=== PATIENT | female | born 1945 | race Caucasian/White ===

== ENCOUNTER 2016-11-24 10:48 | Inpatient (IN) | payer OTHER ==
[~2016-11-24] VITALS: Ht 165.1 cm; Wt 103.5 kg
[2016-11-24] MEDS ORDERED: methylPREDNISolone SOD SUCC 125 MG/2 ML VL IV ONE ×2 (11:00→11:15)
[2016-11-24] MEDS ORDERED: MIDAZOLAM HCL 5 MG/ML-1ML VIAL IV ONE ×2 (11:00→11:15)
[2016-11-24] MEDS ORDERED: SODIUM CHLORIDE 0.9% 1,000 ML IV ONE (11:01)
[2016-11-24 11:34] LABS: Basophils # (auto) 0 uL; Basophils % (auto) 0.5 % (0.0-2.0); Eosinophils # (auto) 0.1 uL; Eosinophils % (auto) 0.9 % (0.0-7.0); Hematocrit 45.6 % (36.0-46.0); Hemoglobin 15.2 g/dL (12.2-16.2); Lymphocytes # (auto) 0.8 uL; Lymphocytes % (auto) 9.6 % (10.0-50.0); Mean Corpuscular Hemoglobin 31.6 pg (28.0-32.0); Mean Corpuscular Hgb Conc. 33.4 g/dL (32.0-36.0); Mean Corpuscular Volume 94.6 fL (80.0-100.0); Monocytes # (auto) 0.3 uL; Monocytes % (auto) 3.6 % (0.0-12.0); Neutrophils # (auto) 7.4 uL; Neutrophils % (auto) 85.4 % (37.0-80.0); Red Cell Distribution Width 16.2 % (11.6-16.0); White Blood Cell 8.6 10^3/uL (4.4-10.8)
[2016-11-24 11:35] LABS: Mean Platelet Volume 10.3 fL (7.4-10.4); Platelet Count (auto) 134 10^3/uL (140-450)
[2016-11-24 11:38] LABS: Allen Test Modified; Base Excess -7.6 mmol/L (-2.0-2.0); Blood COHb 0.1 % (0.5-1.5); Blood MetHb 0.2 % (0.0-1.5); HCO3 17.2 mmol/L (22-26.0); MODE MASK - BIPAP; O2Hb 98.7 % (94.0-97.0); PCO2 33.5 mmHg (35.0-45.0); PCO2(T) 33.5 mmHg (35.0-45.0); PO2 413.2 mmHg (80.0-100.0); PO2(T) 413.2 mmHg (80.0-100.0); Room 7; Sample Type Arterial; Spont Vt 676; pH 7.329 (7.350-7.450)
[2016-11-24 11:51] LABS: INR 1.22 (0.9-1.15); Partial Thromboplastin Time 27.2 sec (22.64-33.71); Prothrombin Time 13.3 sec (9.37-12.3)
[2016-11-24 11:57] LABS: Albumin 3.6 g/dL (3.4-5.0); BUN/Creatinine Ratio 15.2; Bilirubin, Total 1.1 mg/dL (0.2-1.0); Calcium 8.5 mg/dL (8.5-10.1); Lactic Acid w/Reflex 3.6 mmol/L (0.4-2.0); Magnesium 2.3 mg/dL (1.6-2.6); Potassium 4.2 mmol/L (3.5-5.1); Total Protein 7.7 g/dL (6.4-8.2)
[2016-11-24 12:04] LABS: B-Type Natriuretic Peptide 767.47 pg/mL (0-100); Temperature: 24.3 C (20.0-25.0)
[2016-11-24 12:06] LABS: REFLEX LACTIC ACID YES OR NO YES
[2016-11-24] MEDS ORDERED: IPRATROPIUM BROM 0.5 MG/2.5ML INH SOL ONE (14:11)
[2016-11-24] MEDS ORDERED: ALBUTEROL SULF 2.5 MG/0.5ML(0.5%) NEB SOLN ONE (14:11)
[2016-11-24] MEDS ORDERED: ALBUTEROL SULF 2.5 MG/0.5ML(0.5%) NEB SOLN NEB ONE (14:30)
[2016-11-24] MEDS ORDERED: IPRATROPIUM BROM 0.5 MG/2.5ML INH SOL NEB ONE (14:30)
[2016-11-24] MEDS ORDERED: FUROSEMIDE 40 MG/4 ML VIAL IV ONE (14:30)
[2016-11-24] MEDS ORDERED: DEXTROSE (50%) 50ML SYRG IV PRN (15:00)
[2016-11-24] MEDS ORDERED: LACTULOSE 20Gm/30ML SOLN PO PRN (15:00)
[2016-11-24] MEDS ORDERED: MORPHINE SULF INJ 2 MG/ML SYRINGE 1ML IV PRN ×2 (15:00)
[2016-11-24] MEDS ORDERED: NITROGLYCERIN 0.4 MG SL TAB SL PRN (15:00)
[2016-11-24] MEDS ORDERED: ACETAMINOPHEN 500 MG TAB PO PRN (15:00)
[2016-11-24] MEDS ORDERED: FLUCONAZOLE 100 MG TAB PO ONE (15:00)
[2016-11-24] MEDS ORDERED: LORazepam 0.5 MG TAB PO PRN (15:00)
[2016-11-24] MEDS ORDERED: TEMAZEPAM 15 MG CAP PO PRN (15:00)
[2016-11-24] MEDS ORDERED: HYDROcodone-ACET 5/325MG TAB PO PRN (15:00)
[2016-11-24] MEDS ORDERED: KETOCONAZOLE 2 % TOPICAL CREAM 15GM TOP ONE (15:00)
[2016-11-24] MEDS ORDERED: PROMETHAZINE HCL 25 MG/ML 1ML IV PRN (15:00)
[2016-11-24] MEDS ORDERED: ASPirin 81 mg TAB PO ONE (15:30)
[2016-11-24] MEDS ORDERED: LEVOTHYROXINE SODIUM 25 MCG TAB PO ONE (16:00)
[2016-11-24] MEDS ORDERED: LEVOTHYROXINE SODIUM 112 MCG TAB PO ONE (16:00)
[2016-11-24] MEDS: NITROGLYCERIN 0.2MG/HR TOPICAL PATCH TD SCH (16:07)
[2016-11-24] MEDS: ENOXAPARIN SOD 40 MG/0.4 ML SYRINGE SC SCH (16:07)
[2016-11-24 17:00] VITALS: BP 149/88
[2016-11-24] MEDS: ACCU-CHEK COMFORT CURVE STRIP VI SCH (18:16)
[2016-11-24 20:00] VITALS: BP 141/74
[2016-11-24 21:08] VITALS: BP 141/74
[2016-11-24] MEDS: CARVEDILOL 3.125 MG TAB PO SCH (21:50)
[2016-11-25] VITALS: BP 142/67
[2016-11-25 04:00] VITALS: BP 140/79
[2016-11-25 05:55] LABS: Basophils # (auto) 0 uL; Eosinophils # (auto) 0 uL; Eosinophils % (auto) 0.1 % (0.0-7.0); Hematocrit 42.9 % (36.0-46.0); Hemoglobin 14.2 g/dL (12.2-16.2); Lymphocytes # (auto) 0.5 uL; Lymphocytes % (auto) 3.7 % (10.0-50.0); Mean Corpuscular Hemoglobin 31.5 pg (28.0-32.0); Mean Corpuscular Hgb Conc. 33.1 g/dL (32.0-36.0); Mean Corpuscular Volume 95.1 fL (80.0-100.0); Mean Platelet Volume 10.2 fL (7.4-10.4); Monocytes # (auto) 0.2 uL; Monocytes % (auto) 1.3 % (0.0-12.0); Neutrophils # (auto) 13.1 uL; Neutrophils % (auto) 94.9 % (37.0-80.0); Platelet Count (auto) 130 10^3/uL (140-450); Red Cell Distribution Width 15.7 % (11.6-16.0); White Blood Cell 13.8 10^3/uL (4.4-10.8)
[2016-11-25] MEDS: LEVOTHYROXINE SODIUM 112 MCG TAB PO SCH (06:17)
[2016-11-25] MEDS: ACCU-CHEK COMFORT CURVE STRIP VI SCH ×4 (06:17→17:52)
[2016-11-25 06:26] LABS: Albumin 3.5 g/dL (3.4-5.0); BUN/Creatinine Ratio 15.1; Bilirubin, Total 1.1 mg/dL (0.2-1.0); Calcium 8.6 mg/dL (8.5-10.1); Potassium 3.9 mmol/L (3.5-5.1); Total Protein 7.9 g/dL (6.4-8.2)
[2016-11-25 06:45] LABS: Temperature: 23.4 C (20.0-25.0)
[2016-11-25 07:54] VITALS: BP 137/71
[2016-11-25 09:03] LABS: Urine Bilirubin Negative (Negative); Urine Color Yellow (Yellow); Urine Glucose Normal (Normal); Urine Ketone Negative (Negative); Urine Nitrite Negative (Negative); Urine RBC 657 /hpf (0 - 4)
[2016-11-25 09:05] LABS: Urine Blood 3+ /uL (Negative)
[2016-11-25] MEDS: ASPirin 81 mg TAB PO SCH (09:40)
[2016-11-25] MEDS: ENALAPRIL MALEATE 2.5 MG TAB PO SCH (09:41)
[2016-11-25] MEDS: CARVEDILOL 3.125 MG TAB PO SCH ×2 (09:42→22:30)
[2016-11-25] MEDS: ENOXAPARIN SOD 40 MG/0.4 ML SYRINGE SC SCH (09:43)
[2016-11-25] MEDS: NITROGLYCERIN 0.2MG/HR TOPICAL PATCH TD SCH (09:43)
[2016-11-25] MEDS: POTASSIUM CHL 20 Meq TABLET PO SCH (09:43)
[2016-11-25] MEDS: FUROSEMIDE 40 MG/4 ML VIAL IV SCH (09:44)
[2016-11-25] MEDS ORDERED: PANT40TA2 PO (10:09)
[2016-11-25] MEDS ORDERED: ACE3T PO (10:09)
[2016-11-25] MEDS ORDERED: CARV25TA PO (10:09)
[2016-11-25] MEDS ORDERED: APIX5TAB OR (10:09)
[2016-11-25] MEDS ORDERED: ERGO1CAP6 PO (10:09)
[2016-11-25] MEDS ORDERED: FEBU80TA PO (10:09)
[2016-11-25] MEDS ORDERED: LEVO137T3 PO (10:09)
[2016-11-25] MEDS: cefTRIAXone 1GM/50ML D5W 50 ML IV SCH (11:25)
[2016-11-25] MEDS: ACETAMINOPHEN/CODEINE#3 (300/30mg) TAB PO PRN ×2 (11:47→22:50)
[2016-11-25 11:53] VITALS: BP 145/84
[2016-11-25] MEDS ORDERED: PHENAZOPYRIDINE HCL 100 MG TAB PO SCH (14:00)
[2016-11-25 17:00] VITALS: BP 128/80
[2016-11-25] MEDS: APIXABAN 5 MG TAB PO SCH (22:00)
[2016-11-26] MEDS: ACCU-CHEK COMFORT CURVE STRIP VI SCH ×5 (06:00→23:30)
[2016-11-26 06:07] LABS: Basophils # (auto) 0 uL; Basophils % (auto) 0.3 % (0.0-2.0); Eosinophils # (auto) 0 uL; Eosinophils % (auto) 0.1 % (0.0-7.0); Hematocrit 41.3 % (36.0-46.0); Hemoglobin 13.7 g/dL (12.2-16.2); Lymphocytes # (auto) 0.9 uL; Lymphocytes % (auto) 6.4 % (10.0-50.0); Mean Corpuscular Hemoglobin 31.5 pg (28.0-32.0); Mean Corpuscular Hgb Conc. 33.2 g/dL (32.0-36.0); Mean Corpuscular Volume 94.9 fL (80.0-100.0); Mean Platelet Volume 9.4 fL (7.4-10.4); Monocytes # (auto) 0.5 uL; Monocytes % (auto) 3.9 % (0.0-12.0); Neutrophils # (auto) 12.1 uL; Neutrophils % (auto) 89.3 % (37.0-80.0); Platelet Count (auto) 146 10^3/uL (140-450); Red Cell Distribution Width 16.4 % (11.6-16.0); White Blood Cell 13.6 10^3/uL (4.4-10.8)
[2016-11-26 06:27] LABS: INR 1.2 (0.9-1.15); Prothrombin Time 13.1 sec (9.37-12.3)
[2016-11-26 06:28] LABS: Potassium 4.4 mmol/L (3.5-5.1)
[2016-11-26 06:44] LABS: Albumin 3.4 g/dL (3.4-5.0); BUN/Creatinine Ratio 18.5; Bilirubin, Total 0.6 mg/dL (0.2-1.0); Calcium 8.5 mg/dL (8.5-10.1); Magnesium 2.2 mg/dL (1.6-2.6); Total Protein 7.6 g/dL (6.4-8.2)
[2016-11-26] MEDS: LEVOTHYROXINE SODIUM 112 MCG TAB PO SCH (07:04)
[2016-11-26 09:00] VITALS: BP 136/100
[2016-11-26] MEDS: ASPirin 81 mg TAB PO SCH (09:21)
[2016-11-26] MEDS: APIXABAN 5 MG TAB PO SCH (09:22)
[2016-11-26] MEDS: CARVEDILOL 3.125 MG TAB PO SCH (09:23)
[2016-11-26] MEDS: ENALAPRIL MALEATE 2.5 MG TAB PO SCH ×2 (09:24→10:00)
[2016-11-26] MEDS ORDERED: CARV25TA PO (09:30)
[2016-11-26] MEDS: FUROSEMIDE 40 MG/4 ML VIAL IV SCH ×2 (09:44→18:21)
[2016-11-26] MEDS: cefTRIAXone 1GM/50ML D5W 50 ML IV SCH (09:44)
[2016-11-26] MEDS: POTASSIUM CHL 20 Meq TABLET PO SCH ×2 (09:44→10:00)
[2016-11-26] MEDS ORDERED: APIXABAN 5 MG TAB PO SCH (10:00)
[2016-11-26] MEDS: NITROGLYCERIN 0.2MG/HR TOPICAL PATCH TD SCH (10:00)
[2016-11-26 13:00] VITALS: BP 148/86
[2016-11-26] MEDS ORDERED: IPRATROPIUM BROM 0.5 MG/2.5ML INH SOL NEB PRN (13:30)
[2016-11-26] MEDS ORDERED: ALBUTEROL SULF 2.5 MG/0.5ML(0.5%) NEB SOLN NEB PRN (13:30)
[2016-11-26 17:00] VITALS: BP 148/88
[2016-11-26] MEDS: ACETAMINOPHEN/CODEINE#3 (300/30mg) TAB PO PRN (20:46)
[2016-11-26] MEDS: APIXABAN 2.5 MG TAB PO SCH (22:00)
[2016-11-26] MEDS: CARVEDILOL 12.5 MG TAB PO SCH (22:25)
[2016-11-26 23:02] VITALS: BP 155/83
[2016-11-27 00:57] VITALS: BP 155/83
[2016-11-27] MEDS: FUROSEMIDE 40 MG/4 ML VIAL IV SCH ×2 (01:27→10:42)
[2016-11-27 05:00] VITALS: BP 147/84
[2016-11-27] MEDS: ACCU-CHEK COMFORT CURVE STRIP VI SCH (05:47)
[2016-11-27] MEDS: LEVOTHYROXINE SODIUM 112 MCG TAB PO SCH (06:18)
[2016-11-27 07:18] LABS: Calcium 8.9 mg/dL (8.5-10.1); Magnesium 2.1 mg/dL (1.6-2.6); Potassium 3.4 mmol/L (3.5-5.1)
[2016-11-27 07:21] LABS: BUN/Creatinine Ratio 21.9
[2016-11-27 07:58] VITALS: BP 134/70
[2016-11-27] MEDS: cefTRIAXone 1GM/50ML D5W 50 ML IV SCH (09:12)
[2016-11-27] MEDS: ASPirin 81 mg TAB PO SCH (10:40)
[2016-11-27] MEDS: APIXABAN 2.5 MG TAB PO SCH (10:40)
[2016-11-27] MEDS: POTASSIUM CHL 20 Meq TABLET PO SCH (10:40)
[2016-11-27] MEDS: NITROGLYCERIN 0.2MG/HR TOPICAL PATCH TD SCH (10:41)
[2016-11-27] MEDS: ENALAPRIL MALEATE 2.5 MG TAB PO SCH (10:41)
[2016-11-27] MEDS: CARVEDILOL 12.5 MG TAB PO SCH (10:42)
[2016-11-27 11:59] VITALS: BP 151/89
[2016-11-27 12:25] VITALS: BP 134/70
== END 2016-11-27 15:00 | disposition home or self-care (01) | DRG 291 ==
LOC: ER 10:48 → TELE 10:49 → DOU IN ICU 16:52 → TELE-CENTR 11-25 13:30
PROVIDERS: ADMIT Internal Medicine; ATTEND Internal Medicine Geriatric Medicine
PROC: 5A09357 Assistance with Respiratory Ventilation, Less than 24 Consecutive Hours, Continuous Positive Airway Pressure (ICD-10-PCS; principal; 2016-11-24)
DX: I13.0 Hypertensive heart and chronic kidney disease with heart failure and stage 1 through stage 4 chronic kidney disease, or unspecified chronic kidney disease (principal); I50.23 Acute on chronic systolic (congestive) heart failure; N39.0 Urinary tract infection, site not specified; E03.9 Hypothyroidism, unspecified; E11.21 Type 2 diabetes mellitus with diabetic nephropathy; F41.9 Anxiety disorder, unspecified; E11.22 Type 2 diabetes mellitus with diabetic chronic kidney disease; I48.0 Paroxysmal atrial fibrillation; E66.01 Morbid (severe) obesity due to excess calories; N18.9 Chronic kidney disease, unspecified; Z91.14 Patient's other noncompliance with medication regimen; Z68.38 Body mass index [BMI] 38.0-38.9, adult; Z86.73 Personal history of transient ischemic attack (TIA), and cerebral infarction without residual deficits; Z90.710 Acquired absence of both cervix and uterus
CPT/HCPCS: 36415; 71010; 80048; 80053; 80061; 81001; 82550; 82962; 83036; 83605; 83735; 83880; 84443; 84484; 85025; 85379; 85610; 85730; 87040; 87081; 87086; 87088; 87186; 93005; 93306; 93970; 94640; 94660; 94761; 96361; 96374; 96375; 99291; J0696; J2250

== ENCOUNTER 2019-08-11 04:52 | Emergency (ER) | payer OTHER ==
[~2019-08-11] VITALS: Ht 165.1 cm; Wt 127.0 kg
[~2019-08-11 04:52] MED LIST: ACE3T PO; APIX5TAB OR; CARV25TA PO; ERGO1CAP6 PO; FEBU80TA PO; LEVO137T3 PO; PANT40TA2 PO
[2019-08-11] MEDS ORDERED: DEXTROSE (50%) 50ML SYRG IV ONE (04:53)
[2019-08-11] MEDS ORDERED: ATROPINE SULF 1 MG/10ml SYR IV ONE (04:53)
[2019-08-11] MEDS ORDERED: EPINEPHrine HCL 1 MG/10 ML SYRG IV ONE (04:53)
[2019-08-11] MEDS ORDERED: NOREPINEPHRINE 8 MG/250ML KIT 250 ML IV ONE (05:16)
[2019-08-11] MEDS ORDERED: SODIUM BICARBONATE 8.4% INJ 50ML SYRINGE ONE ×2 (05:21→05:41)
[2019-08-11] MEDS ORDERED: SODIUM BICARBONATE 8.4 % INJ 50ML VIAL IV ONE (06:30)
== END 2019-08-11 05:46 | disposition expired ==
LOC: EDBD 04:52 → ER 04:52
DX: I46.9 Cardiac arrest, cause unspecified (principal); I11.0 Hypertensive heart disease with heart failure; I50.9 Heart failure, unspecified; E07.9 Disorder of thyroid, unspecified
CPT/HCPCS: 31500; 36556; 87070; 87205; 92950; 93005; 99291; 99292; J0171; J7042